=== PATIENT | male | born 1985 | race Caucasian/White ===

== ENCOUNTER 2017-10-30 23:34 | Inpatient (IN) | payer OTHER ==
[~2017-10-30] VITALS: Ht 188 cm; Wt 100.2 kg
--- NOTE | ~2017-10-30 | PROC ---
[facility] [address] [place] [address] PROCEDURE REPORT Name: TASHA XAVIER Room: [address] IN M.R.#: [id number] Admission: 10/31/17 Attend Phys: Suray Gray MD Discharge: 11/03/17 Date of : 83 Report #: [id number] THIS REPORT FOR: //name// For GI report, please see the Provation report in Perceptive 7 content. By: [id number] Records Staff CESILIA /JEROD
[~2017-10-30 23:34] MED LIST: ACETAMINOP160 MG/12 PER TUBE; ALBUTEROL S2 MG/5 ML PO; AMBIEN 5 MG TABL5 M1 PO; B12INJ IM; CATAPRESS3 TRANSDERM; HALOPERIDOL2 MG/1 ML PO; HEPARIN SO5000 UNIT/ SUBQ; LEVALBUTER1.25 MG/0. INH; MIRALAX17 GM PER TUBE; MULTILIQ120 PO; ONDANSETRON HCL4 M2 PO; PERCOCET 10-321 EACH PO; PRINIVIL20 MG PO; PROTONIX40 M1 PO; ROBITUSSIN100 MG/53 PER TUBE; TESSALON PERLE100 MG PER TUBE; TRAMADOL 50 MG50 MG PO; TYLENOL325 MG PO; XANAX 0.5 MG0.5 MG PER TUBE; XANAX 0.5 MG0.5 MG PO; ZYPREXA 5 MG TAB5 M2 PO
[2017-10-30 23:41] VITALS: BP 143/86
[2017-10-31 00:07] LABS: URINE BLOOD TRACE (Negative); URINE CLARITY CLEAR; URINE COLOR DARK YELLOW; URINE GLUCOSE-RANDOM TRACE (Negative); URINE KETONES 1+ (Negative); URINE LEUKOCYTES-REFLEX NEGATIVE (Negative); URINE NITRITE-REFLEX NEGATIVE (Negative); URINE PROTEIN 2+ (Negative); URINE SPECIFIC GRAVITY >= 1.030 (1.005-1.030)
[2017-10-31 00:07] LABS: ABSOLUTE LYMPHOCYTES 1.4 thou/uL (0.8-5.3); ABSOLUTE MONOCYTES 1.2 thou/uL (0.0-1.2); BASOPHILS 0.3 %; EOSINOPHILS 0.1 %; HEMATOCRIT 42.6 % (42.0-52.0); HEMOGLOBIN 14.8 gm/dL (14.0-18.0); LYMPHOCYTES 9.7 %; MCH 33.2 pg (26.0-34.0); MCHC 34.9 g/dL (28.0-37.0); MCV 95.1 fL (80.0-100.0); MONOCYTES 8.5 %; MPV 7.9 fl. (7.2-11.1); NUCLEATED RBCS 0 /100WBC; PLATELET COUNT* 212 thou/uL (150-400); POLYS 81.4 %; RBC 4.48 mil/uL (4.50-6.00); RDW-CV 13.9 % (10.5-14.5); WBC 14.7 thou/uL (4.0-11.0)
[2017-10-31 00:09] LABS: URINE BILIRUBIN 2+ (Negative)
[2017-10-31 00:11] LABS: ICTOTEST (BILI CONFIRMATORY) Positive (Negative)
[2017-10-31 00:14] LABS: ANION GAP 11 mmol/L (7-16); BUN 11 mg/dL (7-18); CALCIUM 9.4 mg/dL (8.5-10.1); CHLORIDE 97 mmol/L (98-107); CO2 28 mmol/L (21-32); CREATININE 1.1 mg/dL (0.6-1.3); GLUCOSE 123 mg/dL (70-99); POTASSIUM 3.8 mmol/L (3.5-5.1); SODIUM 136 mmol/L (136-145)
[2017-10-31 00:17] LABS: INR 1.1; PROTIME 10.7 Seconds (9.20-11.50)
[2017-10-31 00:19] LABS: AMP/METHAMP Negative (Negative); BARBITURATES Negative (Negative); BENZODIAZEPINES Negative (Negative); COCAINE Negative (Negative); METHADONE Negative (Negative); OPIATES Negative (Negative); PCP Negative (Negative); THC Negative (Negative)
[2017-10-31 00:25] LABS: ALBUMIN 4.6 g/dL (3.4-5.0); ALKALINE PHOSPHATASE 110 U/L (46-116); NT-PRO BRAIN NAT PEPTIDE 139 pg/mL (<300); SGOT 37 U/L (15-37); SGPT 47 U/L (30-65); TOTAL BILIRUBIN 2.3 mg/dL (<0.1-1.0); TOTAL PROTEIN 8.9 g/dL (6.4-8.2); TROPONIN-I LEVEL <0.06 ng/mL (<0.06)
[2017-10-31 00:41] LABS: LIPASE 9002 U/L (73-393)
[2017-10-31 01:06] LABS: CASTS None Seen /LPF (None Seen); MUCUS 4-6 Moderate strn/LPF (None Seen); SQUAMOUS 4-10 Moderate /LPF (0-3)
[2017-10-31 01:07] LABS: BACTERIA-REFLEX 1-9 Few /HPF (None Seen); CRYSTALS None Seen /LPF (None Seen); URINE RBC 0-2 Rare /HPF (0-2); URINE WBC-REFLEX 0-5 Rare /HPF (0-5)
[2017-10-31 02:43] VITALS: BP 153/80
[2017-10-31 03:13] VITALS: BP 153/94
--- NOTE | 2017-10-31 04:59 | NUR ---
ASSUMED PT CARE AT 0300, PT IS A&OX4, PT IS TRACING NSR ON THE MONITOR, ON RA SATTING MID TO HIGH 90'S. PT C/O PAIN PRN MEDICATIONS GIVEN PER MAY. ADMISSION ASSESSMENT COMPLETED CHARTED. BED IN LOW POSITION, CALL LIGHT IN REACH, HOURLY ROUNDING COMPLETED FOR PT SAFETY.
[2017-10-31 07:30] VITALS: BP 156/87
[2017-10-31 08:56] LABS: HEMATOCRIT 41.6 % (42.0-52.0); HEMOGLOBIN 14.2 gm/dL (14.0-18.0); MCH 33.3 pg (26.0-34.0); MCHC 34.1 g/dL (28.0-37.0); MCV 97.6 fL (80.0-100.0); MPV 7.9 fl. (7.2-11.1); NUCLEATED RBCS 0 /100WBC; PLATELET COUNT* 154 thou/uL (150-400); RBC 4.26 mil/uL (4.50-6.00); RDW-CV 14.1 % (10.5-14.5); WBC 10.9 thou/uL (4.0-11.0)
[2017-10-31 09:10] LABS: DIRECT BILIRUBIN 1.3 mg/dL (<0.1-0.3); TOTAL BILIRUBIN 2.7 mg/dL (<0.1-1.0)
[2017-10-31 09:14] LABS: ABSOLUTE LYMPHOCYTES 1.3 thou/uL (0.8-5.3); ABSOLUTE MONOCYTES 0.8 thou/uL (0.0-1.2); ABSOLUTE NEUTROPHILS 8.8 thou/uL (1.6-8.1)
[2017-10-31 09:15] LABS: ANISOCYTOSIS 1+; PLATELET ESTIMATE ADEQUATE; POIKILOCYTOSIS 1+
[2017-10-31 09:17] LABS: CALCIUM 8.1 mg/dL (8.5-10.1); CREATININE 0.8 mg/dL (0.6-1.3); MAGNESIUM 1.6 mg/dL (1.8-2.4); POTASSIUM 3.7 mmol/L (3.5-5.1); TOTAL BILIRUBIN 2.6 mg/dL (<0.1-1.0); TOTAL PROTEIN 7.7 g/dL (6.4-8.2)
--- NOTE | 2017-10-31 13:18 | NUR ---
RECEIVED PT CARE 0700. HE IS ALERT AND ORIENTED X4. VSS. HOME HEALTH AID TRACING SR. HE DENIES ANY SOA. HE COMPLAINS OF 8/10 ABDOMINAL PAIN. PRN PAIN MEDICATION GIVEN WITH GOOD RELIEF. AM ASSESSMENT CHARTED. MEDS PER MAR. UP AD BRAYDEN IN ROOM. GAIT IS STEADY. HE VOIDS DARK YELLOW URINE PER URINAL. IVF INFUSING. CALL LIGHT WITHIN REACH. WILL CONTINUE TO MONITOR.
--- NOTE | 2017-10-31 14:22 | NUR ---
Pt is A&O. Resides at home. Independent with ADLs, continues to work outside of the home. No DME. No hx of HH or SNF. Hx of acute rehab. Goal is home at [place]. Following.
[2017-10-31 16:13] VITALS: BP 148/82
--- NOTE | 2017-10-31 17:31 | EKG ---
[place] [address] ELECTROCARDIOGRAM REPORT Name: TASHA XAVIER Room: [address] ADM IN M.R.#: [id number] Admission: 10/31/17 Attend Phys: Surya Gray MD Discharge: Date of : 83 Report #: [id number] THIS REPORT FOR: //name// [facility] ED Test Date: 2017-10-30 Test Time: 23:42:23 Pat Name: TASHA XAVIER Department: Room: [facility] Gender: M Asset Protection Manager: ABEBA : 1985 Requested By: Ya Blandon Order Number: [id number] MD: Diomedes Pa Measurements Intervals Tobias Rate: 74 P: 44 WA: 145 QRS: -4 QRSD: 95 T: 38 QT: 381 QTc: 423 Interpretive Statements Sinus rhythm ST elev, probable normal early repol pattern Compared to ECG 04/03/2016 13:18:40 ST (T wave) deviation now present Sinus tachycardia no longer present Electronically Signed On 10-31-2017 17:30:57 CDT by Diomedes Pa [email or web address] <ELECTRONICALLY SIGNED> By: Diomedes Pa MD, [facility] 10/31/17 1730 [id number] Diomedes Pa MD, [facility] /EPI
[2017-10-31 19:40] VITALS: BP 153/93
[2017-11-01 04:32] LABS: HEMATOCRIT 41.3 % (42.0-52.0); HEMOGLOBIN 14.1 gm/dL (14.0-18.0); MCH 33.3 pg (26.0-34.0); MPV 8.4 fl. (7.2-11.1); RBC 4.21 mil/uL (4.50-6.00); RDW-CV 14.7 % (10.5-14.5); WBC 15.2 thou/uL (4.0-11.0)
[2017-11-01 04:41] VITALS: BP 147/93
[2017-11-01 04:42] LABS: ALBUMIN 3.4 g/dL (3.4-5.0); CALCIUM 8.4 mg/dL (8.5-10.1); CREATININE 0.9 mg/dL (0.6-1.3); MAGNESIUM 1.5 mg/dL (1.8-2.4); POTASSIUM 4.5 mmol/L (3.5-5.1); TOTAL BILIRUBIN 4.6 mg/dL (<0.1-1.0)
[2017-11-01 04:54] LABS: TOTAL PROTEIN 7.4 g/dL (6.4-8.2)
--- NOTE | 2017-11-01 05:55 | NUR ---
ASSUMED CARE OF PATIENT AT 1930. PT IS A&O X4; UP AD BRAYDEN IN ROOM. HE IS M/S STATUS AND NOT ON TELEMETRY. HEART TONES REGULAR; PT IS ON ROOM AIR. HE REPORTS ABDOMINAL PAIN 6-7/10 AND HAS TAKEN PAIN MEDICATION APPROXIMATELY Q2H THROUGHOUT THE NIGHT. PT IS NPO EXCEPT FOR ICE CHIPS. IVF D/C'D ACCORDING TO DOCTOR'S ORDER. VOIDING EPHRAIM-TEA COLORED URINE IN URINAL. ALL VSS, NO OTHER COMPLAINTS/COMPLICATIONS. WILL CONTINUE TO MONITOR PT.
[2017-11-01 08:10] VITALS: BP 152/84
--- NOTE | 2017-11-01 10:16 | NUR ---
ASSUMED CARE OF PT AT 0730. PT RESTING IN BED. PT A&0X4, COMPLAINS OF MILD PAIN TO ABDOMEN-TREATED WITH PRN MORPHINE WITH PARTIAL RELIEF. REFER TO EMAR. PT MED SURG STATUS. PT ON RA SAT UPPER 90'S. DENIES ANY SHORTNESS OF BREATH. PT UP AD BRAYDEN IN ROOM. PT HAD INFUSION OF MAGNESIUM IV. PT NPO EXCEPT ICE CHIPS. PT DENIES ANY NAUSEA. DR CHRISTENSEN HERE TO SEE PT AND ORDERS RECEIVED FOR CLEAR LIQUIDS AT LUNCH AND ADVANCE DIET TOLERATED. GI HERE TO SEE PT THIS AM AND SUGGESTING EUS OUTPT IN 4 WEEKS. PT MOTHER HERE THIS AM AND UPDATED ON CURRENT PLAN OF CARE INCLUDING GI FINDINGS, PAIN MEDICATION AND ADVANCING DIET TOLERATED. PT GOAL FOR TODAY IS PAIN AND NAUSEA MGMT, TOLERATE ADVANCING DIET AND INCREASE ACTIVITY. AM ASSESSMENT CHARTED. MEDICATIONS PER MAY. PT REPOSITIONS SELF. HOURLY ROUNDING OBSERVED. BED IN LOW POSITION. CALL LIGHT WITHIN REACH. WILL CONTINUE PLAN OF CARE.
--- NOTE | 2017-11-01 11:54 | NUR ---
ORDERS RECEIVED FOR PT TO TRANSFER TO ROOM 106. REPORT CALLED TO AVRIL UMANZOR. PT TRANSFERRED TO ROOM 106 WITH NURSING STAFF WITH ALL BELONGINGS AND CHART.
[2017-11-01 12:14] VITALS: BP 145/95
--- NOTE | 2017-11-01 12:14 | NUR ---
PT TRANSFERRED TO ORTH SURG UNIT. VSS. REPORT RECEIVED FROM TELE NURSE. PT REQUESTING PAIN MEDICATION AT TIME OF TRANSFER. CLWR. WCTM.
[2017-11-01 15:54] VITALS: BP 145/95
[2017-11-01 16:03] VITALS: BP 152/96
--- NOTE | 2017-11-01 16:04 | NUR ---
PT CURRENTLY AT OR FOR ERCP AT THIS TIME
--- NOTE | 2017-11-01 16:17 | NUR ---
PT SOMEWHAT PROGRESSING TOWARDS GOALS THIS SHIFT. PT REPORTS HE IS STILL HAVING ABDOMINAL PAIN. IV MORPHINE EFFECTIVE IN MANAGING HIS PAIN. PT HAS NO C/O N/V. TOLERATED CLEAR LIQUID DIET FOR LUNCH. ERCP AT THIS TIME. WILL EVALUATE IF DIET CAN BE ADVANCED POST PROCEDURE. NO OTHER CONCERNS AT THIS TIME.
[2017-11-01 19:35] VITALS: BP 142/83
[2017-11-02] VITALS: BP 128/77
[2017-11-02 04:22] VITALS: BP 120/73
[2017-11-02 04:34] LABS: HEMATOCRIT 35.4 % (42.0-52.0); HEMOGLOBIN 12.2 gm/dL (14.0-18.0); MCH 33.5 pg (26.0-34.0); MCHC 34.4 g/dL (28.0-37.0); MCV 97.4 fL (80.0-100.0); MPV 8.6 fl. (7.2-11.1); RBC 3.64 mil/uL (4.50-6.00); RDW-CV 13.7 % (10.5-14.5)
[2017-11-02 05:00] LABS: ALBUMIN 3.1 g/dL (3.4-5.0); CALCIUM 8.1 mg/dL (8.5-10.1); DIRECT BILIRUBIN 4.6 mg/dL (<0.1-0.3); MAGNESIUM 2.1 mg/dL (1.8-2.4); POTASSIUM 4.5 mmol/L (3.5-5.1); TOTAL BILIRUBIN 5.8 mg/dL (<0.1-1.0); TOTAL PROTEIN 6.7 g/dL (6.4-8.2)
--- NOTE | 2017-11-02 06:51 | NUR ---
Arrived to floor after procedure at 1930. His vitals are have been stable the first set had a pulse of 100 and temp 99.7. But since then it's been normal. He did state he voided approximately 600 mls but the urinal had a hole in it. He requested pain meds x 1. He has slept well. This am he had a positive sepsis screen and it was called to Dr Jerome and orders were recieved.
[2017-11-02 07:50] VITALS: BP 128/79
[2017-11-02 15:43] VITALS: BP 129/73
--- NOTE | 2017-11-02 16:59 | NUR ---
PATIENT A&OX4, ROOM AIR, IV LEFT FOREARM SALINE LOCK. UP WITH STAND BY, STEADY GAIT. NO C/O PAIN/N/V. VOIDING PER URINAL, DARK YELLOW IN COLOR. NO OTHER CONCERNS AT THIS TIME. APPROPRIATE AND COOPORATIVE WITH CARE.
[2017-11-02 20:45] VITALS: BP 135/89
[2017-11-03 00:32] VITALS: BP 144/93
[2017-11-03 04:44] VITALS: BP 150/88
[2017-11-03 05:10] LABS: IgG 932 mg/dL (700-1600)
[2017-11-03 08:57] LABS: ABSOLUTE LYMPHOCYTES 1.2 thou/uL (0.8-5.3); ABSOLUTE MONOCYTES 0.8 thou/uL (0.0-1.2); ABSOLUTE NEUTROPHILS 7.5 thou/uL (1.6-8.1); BASOPHILS 0.4 %; EOSINOPHILS 0.2 %; HEMATOCRIT 32.4 % (42.0-52.0); HEMOGLOBIN 11.2 gm/dL (14.0-18.0); LYMPHOCYTES 12.8 %; MCH 33.9 pg (26.0-34.0); MCHC 34.6 g/dL (28.0-37.0); MCV 98.1 fL (80.0-100.0); MPV 7.8 fl. (7.2-11.1); NUCLEATED RBCS 0 /100WBC; PLATELET COUNT* 145 thou/uL (150-400); POLYS 78.6 %; RBC 3.31 mil/uL (4.50-6.00); RDW-CV 13.7 % (10.5-14.5); WBC 9.6 thou/uL (4.0-11.0)
[2017-11-03 09:09] LABS: ALBUMIN 2.9 g/dL (3.4-5.0); CALCIUM 8.6 mg/dL (8.5-10.1); CREATININE 0.8 mg/dL (0.6-1.3); POTASSIUM 3.3 mmol/L (3.5-5.1); TOTAL PROTEIN 7.2 g/dL (6.4-8.2)
[2017-11-03] MEDS ORDERED: PEPCID20 MG PO (13:04)
[2017-11-03 13:31] VITALS: BP 150/88
--- NOTE | 2017-11-03 14:13 | NUR ---
PATEINT A&OX4, ROOM AIR, IV LEFT FOREARM FLUIDS INFUSSING. IV DISCONTINUED, CATHETER FULLY INTACT. UP AD BRAYDEN, STEADY GAIT. C/O PAIN THIS MORNING, RELEIF WITH MEDICATION. NO OTHER CONCERNS AT THIS TIME. REVIEWED DISCHARGE PAPERWORK WITH SPOUSE AT BEDSIDE. ALL QUESTIONS AND CONCERNS ANSWERED AT THIS TIME. [facility] LEFT UNIT AT 1410 AMBULATORY WITH ALL BELONGINGS. APPROPRIATE AND COOPORATIVE WITH CARE.
== END 2017-11-03 14:10 | disposition home or self-care (01) | DRG 432 ==
LOC: M.ERS 23:34 → M.TBA-ER 10-31 01:57 → M.ERS 10-31 01:57 → M.2W 10-31 02:05 → M.TBA-ER 10-31 02:05 → M.2W 10-31 02:53 → M.ORTHSURG 11-01 12:00
PROVIDERS: Emergency Medicine; Family Medicine; Internal Medicine; Internal Medicine Gastroenterology; Surgery; ADMIT Internal Medicine
PROC: 0F7D8ZZ Dilation of Pancreatic Duct, Via Natural or Artificial Opening Endoscopic (ICD-10-PCS; principal; 2017-11-01)
DX: K70.10 Alcoholic hepatitis without ascites (principal); K85.10 Biliary acute pancreatitis without necrosis or infection; R65.10 Systemic inflammatory response syndrome (SIRS) of non-infectious origin without acute organ dysfunction; I10 Essential (primary) hypertension; Z77.22 Contact with and (suspected) exposure to environmental tobacco smoke (acute) (chronic); E80.6 Other disorders of bilirubin metabolism; Z79.899 Other long term (current) drug therapy; Z82.49 Family history of ischemic heart disease and other diseases of the circulatory system; Z93.0 Tracheostomy status

== ENCOUNTER → 2017-12-19 | Day surgery (SDC) | payer OTHER ==
[~2017-12-19] MED LIST changes: +PEPCID20 MG PO
--- NOTE | ~2017-12-19 | PROC ---
[address] [address] PROCEDURE REPORT Name: TASHA XAVIER Room: [facility].#: [id number] Admission: 12/19/17 Attend Phys: Billy Carl MD Discharge: Date of : 83 Report #: [id number] THIS REPORT FOR: //name// For GI report, Please see the Provation report in Perceptive 7 content. By: [id number] Records Staff CESILIA /JEROD
[2017-12-19 07:16] LABS: CREATININE 0.9 mg/dL (0.6-1.3); POTASSIUM 3.9 mmol/L (3.5-5.1)
== END | disposition home or self-care (01) ==
LOC: M.SUR 06:54
PROVIDERS: Anesthesiology
DX: Z46.59 Encounter for fitting and adjustment of other gastrointestinal appliance and device (principal); K80.50 Calculus of bile duct without cholangitis or cholecystitis without obstruction; I10 Essential (primary) hypertension; F17.200 Nicotine dependence, unspecified, uncomplicated; Z79.899 Other long term (current) drug therapy